=== PATIENT | female | born 2000 | race African-American/Black ===

== ENCOUNTER 2020-10-08 00:21 | Emergency (ER) | payer MEDICAID ==
[~2020-10-08] VITALS: Ht 157.5 cm; Wt 35.0 kg
--- NOTE | 2020-10-08 00:45 | PHYS DOC ---
Past History Past Medical History: Constipation, Other Additional Past Medical Histor: premature, mentally delayed,spastic cerebal palsy,deaf,blind in one eye Past Surgical History: Other Additional Past Surgical Histo: eye,gtube placed and removed Alcohol Use: None General Adult EDM: Chief Complaint: CONSTIPATION HPI: HPI: 20-year-old special-needs female accompanied by her mother presents with constipation. The patient has not had a bowel movement since Tuesday. She has a history of constipation. Her mother was unable to do an enema because there is hard stool in the rectum. The patient has no other complaints at this time. Review of Systems: Review of Systems: Constitutional: Denies fever or chills Eyes: Denies change in visual acuity HENT: Denies nasal congestion or sore throat Respiratory: Denies cough or shortness of breath Cardiovascular: Denies chest pain or edema GI: Constipation. Denies nausea, vomiting, bloody stools or diarrhea : Denies dysuria Musculoskeletal: Denies back pain or joint pain Integument: Denies rash Neurologic: Denies headache, focal weakness or sensory changes Endocrine: Denies polyuria or polydipsia Lymphatic: Denies swollen glands Psychiatric: Denies depression or anxiety Allergies: Allergies: Allergies Coded Allergies Type Severity Reaction Last Updated Verified No Known Drug Allergies 10/08/20 No Physical Exam: PE: Constitutional: Well developed, well nourished, thin, no acute distress, non- toxic appearance. [] HENT: Normocephalic, atraumatic, bilateral external ears normal, oropharynx moist, no oral exudates, nose normal. [] Eyes: blind left eye [] Neck: Normal range of motion, no tenderness, supple, no stridor. [] Cardiovascular: Heart rate 105, regular rhythm, no murmur [] Lungs & Thorax: Bilateral breath sounds clear to auscultation [] Abdomen: Bowel sounds normal, soft, no tenderness, no masses, no pulsatile masses. [] Skin: Warm, dry, no erythema. [] Back: No tenderness, no CVA tenderness. [] Extremities: No tenderness, no cyanosis, no clubbing, ROM intact, no edema. [] Neurologic: Alert, normal motor function, normal sensory function, no focal deficits noted. [] Psychologic: mood anxious. [] Current Patient Data: Vital Signs: Vital Signs Date Time Temp Pulse Resp B/P (MAP) Pulse Ox O2 Delivery O2 Flow Rate FiO2 10/08/20 00:21 98.1 102 20 146/65 (92) 96 Room Air EKG: EKG: [] Radiology/Procedures: Radiology/Procedures: [] Heart Score: C/O Chest Pain: N/A Risk Factors: Risk Factors: DM, Current or recent (<one month) smoker, HTN, HLP, family history of CAD, obesity. Risk Scores: Score 0 - 3: 2.5% MACE over next 6 weeks - Discharge Home Score 4 - 6: 20.3% MACE over next 6 weeks - Admit for Clinical Observation Score 7 - 10: 72.7% MACE over next 6 weeks - Early Invasive Strategies Course & Med Decision Making: Course & Med Decision Making Pertinent Labs and Imaging studies reviewed. (See chart for details) The patient's KUB showed significant constipation. Given the patient's mental status the mom felt that it was best to use procedural sedation for the procedure. We gave the patient ketamine. See sedation note for more details. I was able to do some manual disimpaction and the stool was quite firm. This was followed by an enema. Magnesium citrate was given to the patient by NG tube during her sedation. She is also given 4 mg of Zofran and a liter of normal saline. The patient did go on to have large stool output in the ER. I have advised her mom to increase her MiraLAX regimen and discussed this with her primary care physician. She is stable for discharge at this time. [] Harpreet Disclaimer: Harpreet Disclaimer: This electronic medical record was generated, in whole or in part, using a voice recognition dictation system. Procedural Sedation Proc Sed Indication: [] Special needs patient with diminished capacity. Procedural sedation is necessary for IV, NG tube, and manual disimpaction of the rectum Consent: [] Given by her mother Physician Involvement: The attending physician was present and supervising this procedure. Pre-Sedation Documentation and Exam: [] The patient is alert and aware of her surroundings. She is in no acute distress. Vital signs are within normal limits Airway Assessment: [] Mallampati class II Prior History of Anesthesia Complications: [] None ASA Classification: [] 1 Sedation/ Anesthesia Plan: [] 100 mg ketamine IM Medications Used: [] 100 mg ketamine IM Monitoring and Safety: The patient was placed on a athletic monitor and vital signs, pulse oximetry and level of consciousness were continuously evaluated throughout the procedure. The patient was closely monitored until recovery from the medications was complete and the patient had returned to baseline status. Respiratory therapy was on standby at all times during the procedure. (The following sections must be completed) Post-Sedation Vital Signs: [EDM.VS] see chart Post-Sedation Exam: [] The patient has returned to her baseline mental status and activity level as confirmed by her mother. Her vitals are within normal limits. Complications: None Vital Signs Vital Signs Date Time Temp Pulse Resp B/P (MAP) Pulse Ox O2 Delivery O2 Flow Rate FiO2 10/08/20 00:21 98.1 102 20 146/65 (92) 96 Room Air Departure Departure: Impression: Primary Impression: Constipation by delayed colonic transit Disposition: HOME / SELF CARE / HOMELESS Condition: IMPROVED Referrals: MONTY ROONEY (PCP) Patient Instructions: Constipation, Adult, [id number] KAREN MUÑOZ DO Oct 08, 2020 00:45
[2020-10-08] MEDS ORDERED: KETAMINE HCL 500 MG/10 ML VIAL. ONE (01:14)
[2020-10-08] MEDS ORDERED: KETAMINE HCL 500 MG/10 ML VIAL. IM ONE (01:15)
[2020-10-08] MEDS ORDERED: MAGNESIUM CITRATE 296 ML SOLUTION. PO ONE (01:15)
--- NOTE | 2020-10-08 01:19 | RAD ---
EXAM: Supine AP view of the abdomen DATE: 10/08/2020 12:40 AM INDICATION: Reason: constipation / Spl. Instructions: / History: COMPARISON: No Prior FINDINGS: No abnormal small or large bowel dilatation. Large volume colonic stool content. No abnormal soft t issue mass effect. No suspicious calcifications are seen. Evaluation for free intraperitoneal gas i s limited on this supine exam. IMPRESSION: 1. No evidence for bowel obstruction. 2. Large volume colonic stool content may be seen with constipation. Electronically signed by: Gage Perry MD (10/08/2020 1:16 AM) MICHAEL
[2020-10-08] MEDS ORDERED: SODIUM PHOSPHATES 19/7GM 133 ML ENEMA. PR ONE (01:30)
[2020-10-08] MEDS ORDERED: IV NORMAL SALINE 1,000ML 1,000 ML IV ONE (01:30)
[2020-10-08 01:38] VITALS: BP 116/70
[2020-10-08] MEDS ORDERED: ONDANSETRON PF 4 MG/2 ML VIAL. IVP ONE (02:00)
[2020-10-08] MEDS ORDERED: cefTRIAXone SODIUM 1 GM VIAL ONE (02:57)
[2020-10-08] MEDS ORDERED: IV NORMAL SALINE 50ML 50 ML ONE (02:57)
[2020-10-08 04:05] VITALS: BP 126/77
[2020-10-08] MEDS ORDERED: POLY17PO5 PO (06:27)
== END 2020-10-08 04:13 | disposition home or self-care (01) ==
LOC: ER 00:21
DX: K59.00 Constipation, unspecified (principal)
CPT/HCPCS: 45915; 74018; 96361; 96365; 96375; 99285; J0696; J2405; J7030

== ENCOUNTER → 2021-03-25 | Outpatient (CLI) | payer MEDICAID ==
[~2021-03-25] MED LIST: POLY17PO5 PO
--- NOTE | 2021-03-25 12:57 | RAD ---
EXAM: Abdomen series. HISTORY: Constipation. Pain. COMPARISON: 10/08/2020 FINDINGS: A frontal view of the chest and frontal upright and supine views of the abdomen are obtaine d. There is no infiltrate, pleural effusion or pneumothorax. The heart is normal in size. There are d istended air-filled loops of bowel within the left upper quadrant. There is a large amount of stool t hroughout the colon and within the rectum. There is lumbar scoliosis. There is no free air. IMPRESSION: 1. Large amount of colonic gas and stool and formed stool within the rectum, consistent with constipa tion. There may be superimposed fecal impaction. 2. No acute pulmonary finding. Electronically signed by: Deborah Hayes MD (03/25/2021 12:55 PM) [id number]
== END ==
LOC: RAD 12:30
PROVIDERS: ATTEND Family Medicine
DX: R19.7 Diarrhea, unspecified (principal); R63.0 Anorexia; M41.86 Other forms of scoliosis, lumbar region
CPT/HCPCS: 74022